=== PATIENT | male | born 1965 | race Caucasian/White ===

== ENCOUNTER 2018-08-08 20:26 | Emergency (ER) | payer OTHER ==
[~2018-08-08] VITALS: Ht 172.7 cm; Wt 85.9 kg
[2018-08-08 20:50] VITALS: BP 125/104; Ht 172.7 cm; Wt 85.9 kg
== END 2018-08-08 22:31 | disposition home or self-care (01) ==
LOC: ED 20:26
DX: S60.511A Abrasion of right hand, initial encounter (principal); F15.90 Other stimulant use, unspecified, uncomplicated; W26.8XXA Contact with other sharp object(s), not elsewhere classified, initial encounter; Y93.89 Activity, other specified; Y92.89 Other specified places as the place of occurrence of the external cause; Y99.8 Other external cause status
CPT/HCPCS: 90715

== ENCOUNTER 2018-08-11 20:46 | Emergency (ER) | payer OTHER ==
[~2018-08-11] VITALS: Ht 172.7 cm; Wt 86.2 kg
[2018-08-11 21:03] VITALS: Ht 172.7 cm; Wt 86.2 kg
[2018-08-11 23:21] VITALS: BP 130/74
== END 2018-08-11 23:21 | disposition home or self-care (01) ==
LOC: ED 20:46
DX: M79.641 Pain in right hand (principal); L98.8 Other specified disorders of the skin and subcutaneous tissue; F15.10 Other stimulant abuse, uncomplicated

== ENCOUNTER 2020-10-26 14:00 | Emergency (ER) | payer OTHER ==
[~2020-10-26] VITALS: Ht 172.7 cm; Wt 87.1 kg
[2020-10-26 14:08] VITALS: Ht 172.7 cm; Wt 87.1 kg
[2020-10-26 17:28] VITALS: BP 134/80
== END 2020-10-26 17:28 | disposition home or self-care (01) ==
LOC: ED 14:00
DX: S29.011A Strain of muscle and tendon of front wall of thorax, initial encounter (principal); S43.402A Unspecified sprain of left shoulder joint, initial encounter; M54.5 Low back pain; V39 Occupant of three-wheeled motor vehicle injured in other and unspecified transport accidents; Y93.I9 Activity, other involving external motion; Y92.413 State road as the place of occurrence of the external cause; Y99.8 Other external cause status
CPT/HCPCS: J1885